=== PATIENT | male | born 1955 | race Caucasian/White ===

== ENCOUNTER 2017-12-20 09:18 | Outpatient (CLI) | payer BC | END 2017-12-20 23:59 | disposition home or self-care (01) | LOC: RAD 09:18 | PROVIDERS: ATTEND Family Medicine | DX: M47.892 Other spondylosis, cervical region (principal); M48.02 Spinal stenosis, cervical region | CPT/HCPCS: 72141 ==

== ENCOUNTER 2018-04-25 11:59 | Outpatient (CLI) | payer OTHER ==
[2018-04-25 12:40] LABS: BASOPHILS % (AUTO) 0.5 % (0-1); EOSINOPHILS # (AUTO) 0.4 X10'3 (0-0.9); EOSINOPHILS % (AUTO) 6.3 % (0-6); HEMATOCRIT 44.2 % (42.0-52.0); LYMPHOCYTES # (AUTO) 1.5 X10'3 (1.1-4.8); LYMPHOCYTES % (AUTO) 24.5 % (21-51); MEAN CORPUSCULAR HEMOGLOBIN 30.8 PG (27.0-31.0); MEAN CORPUSCULAR HGB CONC 33.9 % (33.0-36.5); MEAN CORPUSCULAR VOLUME 90.9 FL (78-98); MEAN PLATELET VOLUME 8.1 FL (7.4-10.4); MONOCYTES # (AUTO) 0.5 X10'3 (0-0.9); MONOCYTES % (AUTO) 7.9 % (2-12); NEUTROPHILS # (AUTO) 3.8 X10'3 (1.8-7.7); NEUTROPHILS % (AUTO) 60.8 % (42-75); PLATELET COUNT 183 X10'3 (140-440); RED BLOOD COUNT 4.86 X10'6 (4.70-6.10); RED CELL DISTRIBUTION WIDTH 13.4 % (11.5-14.5); WHITE BLOOD COUNT 6.3 X10'3 (4.5-11.0)
[2018-04-25 12:59] LABS: ALANINE AMINOTRANSFERASE 27 U/L (12-78); ALBUMIN 3.5 G/DL (3.4-5.0); ALKALINE PHOSPHATASE 70 IU/L (46-116); ANION GAP 10 (8-16); ASPARTATE AMINO TRANSFERASE 17 U/L (10-37); BILIRUBIN,TOTAL 0.8 MG/DL (0.1-1.0); BLOOD UREA NITROGEN 12 MG/DL (7-18); BUN/CREATININE RATIO 11.8 (5.4-32.0); CALCIUM 8.6 MG/DL (8.5-10.1); CHLORIDE 104 MMOL/L (99-107); CREATININE 1.02 MG/DL (0.60-1.10); GLUCOSE 96 MG/DL (70-104); POTASSIUM 3.8 MMOL/L (3.5-5.1); SODIUM 142 MMOL/L (135-145); TOTAL CARBON DIOXIDE 28.2 MMOL/L (24-32); TOTAL PROTEIN 7.1 G/DL (6.4-8.2); eGFR 74 ML/MIN
== END 2018-04-25 23:59 | disposition home or self-care (01) ==
LOC: LAB 11:59
PROVIDERS: ATTEND Family Medicine
DX: R60.9 Edema, unspecified (principal)
CPT/HCPCS: 36415; 80053; 83880; 85025

== ENCOUNTER 2018-09-27 08:16 | Outpatient (CLI) | payer OTHER ==
[2018-09-27 09:54] LABS: BASOPHILS % (AUTO) 0.7 % (0-1); EOSINOPHILS # (AUTO) 0.3 X10'3 (0-0.9); EOSINOPHILS % (AUTO) 5.8 % (0-6); HEMATOCRIT 46.7 % (42.0-52.0); HEMOGLOBIN 15.5 g/dl (14.0-17.9); LYMPHOCYTES # (AUTO) 1.4 X10'3 (1.1-4.8); LYMPHOCYTES % (AUTO) 30.4 % (21-51); MEAN CORPUSCULAR HEMOGLOBIN 30.7 PG (27.0-31.0); MEAN CORPUSCULAR HGB CONC 33.2 g/dL (33.0-36.5); MEAN CORPUSCULAR VOLUME 92.4 FL (78-98); MEAN PLATELET VOLUME 8.8 FL (7.4-10.4); MONOCYTES # (AUTO) 0.5 X10'3 (0-0.9); NEUTROPHILS # (AUTO) 2.4 X10'3 (1.8-7.7); NEUTROPHILS % (AUTO) 52.1 % (42-75); PLATELET COUNT 163 X10'3 (140-440); RED BLOOD COUNT 5.05 X10'6 (4.70-6.10); RED CELL DISTRIBUTION WIDTH 13.6 % (11.5-14.5); WHITE BLOOD COUNT 4.6 X10'3 (4.5-11.0)
[2018-09-27 10:13] LABS: CLARITY,URINE CLEAR (Clear); COLOR,URINE YELLOW (Yellow); GLUCOSE, URINE NEGATIVE (Neg); KETONES,URINE 15 mg/dl (Neg); LEUKOCYTE ESTERASE ,URINE NEGATIVE (Neg); NITRITES, URINE NEGATIVE (Neg); OCCULT BLOOD,URINE NEGATIVE (Neg); PROTEIN,URINE TRACE mg/dl (Neg)
[2018-09-27 10:25] LABS: ALANINE AMINOTRANSFERASE 39 U/L (12-78); ALBUMIN 3.7 G/DL (3.4-5.0); ALBUMIN/GLOBULIN RATIO 0.9 (1.1-1.5); ALKALINE PHOSPHATASE 52 IU/L (46-116); ANION GAP 9 (8-16); ASPARTATE AMINO TRANSFERASE 26 U/L (10-37); BILIRUBIN,TOTAL 0.8 MG/DL (0.1-1.0); BLOOD UREA NITROGEN 17 MG/DL (7-18); CALCIUM 9.2 MG/DL (8.5-10.1); CHLORIDE 102 MMOL/L (99-107); CHOL/HDL RATIO 1.4 (0.00-4.99); CHOLESTEROL 157 MG/DL (0-200); CREATININE 1.06 MG/DL (0.60-1.10); GLUCOSE 92 MG/DL (70-104); HDL CHOLESTEROL 111 MG/DL (35-60); LDL CHOLESTEROL 39 MG/DL (50-100); POTASSIUM 3.8 MMOL/L (3.5-5.1); SODIUM 142 MMOL/L (135-145); TOTAL CARBON DIOXIDE 30.7 MMOL/L (24-32); TOTAL PROTEIN 7.6 G/DL (6.4-8.2); TRIGLYCERIDES 41 MG/DL (20-135); eGFR 71 ML/MIN
[2018-09-27 11:00] LABS: UA COLLECTION TYPE CLN CATCH MIDSTREAM
[2018-09-27 11:07] LABS: BACTERIA,URINE NONE SEEN /HPF (Neg); RBC,URINE NONE SEEN /HPF (0-2); WBC,URINE NONE SEEN /HPF (0-4)
[2018-09-27 11:08] LABS: SQUAMOUS EPITHELIAL CELL,UR NONE SEEN /LPF (FEW)
== END 2018-09-27 23:59 | disposition home or self-care (01) ==
LOC: LAB 08:16
PROVIDERS: ATTEND Family Medicine
DX: Z76.89 Persons encountering health services in other specified circumstances (principal)
CPT/HCPCS: 36415; 80053; 80061; 81001; 84439; 84443; 85025

== ENCOUNTER 2020-02-06 15:04 | Emergency (ER) | payer BC, OTHER ==
[~2020-02-06] VITALS: Ht 172.7 cm; Wt 81.8 kg
[2020-02-06 16:04] LABS: BASOPHILS % (AUTO) 0.7 % (0-1); EOSINOPHILS # (AUTO) 0.3 X10'3 (0-0.9); EOSINOPHILS % (AUTO) 5.5 % (0-6); HEMATOCRIT 43.7 % (42.0-52.0); HEMOGLOBIN 14.9 g/dl (14.0-17.9); LYMPHOCYTES # (AUTO) 1.3 X10'3 (1.1-4.8); LYMPHOCYTES % (AUTO) 22.6 % (21-51); MEAN CORPUSCULAR HEMOGLOBIN 31.5 PG (27.0-31.0); MEAN CORPUSCULAR HGB CONC 34.2 g/dL (33.0-36.5); MEAN CORPUSCULAR VOLUME 92.1 FL (78-98); MEAN PLATELET VOLUME 8.3 FL (7.4-10.4); MONOCYTES # (AUTO) 0.5 X10'3 (0-0.9); MONOCYTES % (AUTO) 7.8 % (2-12); NEUTROPHILS # (AUTO) 3.8 X10'3 (1.8-7.7); NEUTROPHILS % (AUTO) 63.4 % (42-75); PLATELET COUNT 154 X10'3 (140-440); RED BLOOD COUNT 4.74 X10'6 (4.70-6.10); RED CELL DISTRIBUTION WIDTH 13.7 % (11.5-14.5)
[2020-02-06 16:19] LABS: ALANINE AMINOTRANSFERASE 34 U/L (12-78); ALBUMIN 3.5 G/DL (3.4-5.0); ALBUMIN/GLOBULIN RATIO 0.9 (1.1-1.5); ALKALINE PHOSPHATASE 59 IU/L (46-116); ANION GAP 7 (8-16); ASPARTATE AMINO TRANSFERASE 22 U/L (10-37); BILIRUBIN,TOTAL 0.6 MG/DL (0.1-1.0); BLOOD UREA NITROGEN 13 MG/DL (7-18); BUN/CREATININE RATIO 11.5 (5.4-32.0); CALCIUM 8.6 MG/DL (8.5-10.1); CHLORIDE 105 MMOL/L (99-107); CREATININE 1.13 MG/DL (0.60-1.10); GLUCOSE 108 MG/DL (70-104); POTASSIUM 3.7 MMOL/L (3.5-5.1); SODIUM 140 MMOL/L (135-145); TOTAL CARBON DIOXIDE 27.8 MMOL/L (24-32); TOTAL PROTEIN 7.3 G/DL (6.4-8.2); eGFR 65 ML/MIN
[2020-02-06] MEDS ORDERED: ondansetron/PF 4mg/2ml inj IV ONE (17:25)
[2020-02-06] MEDS ORDERED: morphine 4 MG/ML inj SYRINge IV ONE ×2 (17:25→18:25)
[2020-02-06] MEDS ORDERED: iohexol 350MG/ML 100ml bottle IV ONE (17:33)
--- NOTE | 2020-02-06 18:49 | NUR ---
pt does not want IV morphine at this time. he wants to wait for the CT results first
[2020-02-06] MEDS ORDERED: IBUP-1985 PO (19:47)
[2020-02-06] MEDS ORDERED: OXYC-145 PO (19:47)
[2020-02-06 20:04] VITALS: BP 150/96
== END 2020-02-06 20:07 | disposition home or self-care (01) ==
LOC: ER 15:05
DX: S22.20XA Unspecified fracture of sternum, initial encounter for closed fracture (principal); Z79.899 Other long term (current) drug therapy; W18.39XA Other fall on same level, initial encounter; Y93.89 Activity, other specified; Y92.89 Other specified places as the place of occurrence of the external cause; Y99.8 Other external cause status
CPT/HCPCS: 36415; 71275; 74175; 80053; 83880; 84484; 85025; 85610; 86885; 86900; 86901; 93005; 93306; 96374; 96375; 99285; J2270; J2405; Q9967

== ENCOUNTER 2021-01-06 19:40 | Emergency (ER) | payer BC ==
[~2021-01-06] VITALS: Ht 172.7 cm; Wt 75.1 kg
[~2021-01-06 19:40] MED LIST: IBUP-1985 PO; OXYC-145 PO
[2021-01-07] MEDS ORDERED: normal saline 1000ML IV soln IVB ONE (00:40)
[2021-01-07] MEDS ORDERED: nitroGLYCERIN 1gm ointment UD TP ONE (00:40)
[2021-01-07 01:12] LABS: BASOPHILS % (AUTO) 0.4 % (0-1); EOSINOPHILS # (AUTO) 0.2 X10'3 (0-0.9); EOSINOPHILS % (AUTO) 4.1 % (0-6); HEMATOCRIT 46.3 % (42.0-52.0); HEMOGLOBIN 15.7 g/dl (14.0-17.9); LYMPHOCYTES # (AUTO) 1.4 X10'3 (1.1-4.8); LYMPHOCYTES % (AUTO) 25.8 % (21-51); MEAN CORPUSCULAR HEMOGLOBIN 30.9 PG (27.0-31.0); MEAN CORPUSCULAR VOLUME 91.1 FL (78-98); MEAN PLATELET VOLUME 8.3 FL (7.4-10.4); MONOCYTES # (AUTO) 0.5 X10'3 (0-0.9); MONOCYTES % (AUTO) 8.6 % (2-12); NEUTROPHILS # (AUTO) 3.4 X10'3 (1.8-7.7); NEUTROPHILS % (AUTO) 61.1 % (42-75); PLATELET COUNT 164 X10'3 (140-440); RED BLOOD COUNT 5.09 X10'6 (4.70-6.10); RED CELL DISTRIBUTION WIDTH 13.8 % (11.5-14.5); WHITE BLOOD COUNT 5.5 X10'3 (4.5-11.0)
[2021-01-07 01:27] LABS: ALANINE AMINOTRANSFERASE 53 U/L (12-78); ALKALINE PHOSPHATASE 66 IU/L (46-116); ANION GAP 14 (8-16); ASPARTATE AMINO TRANSFERASE 33 U/L (10-37); BILIRUBIN,TOTAL 1.4 MG/DL (0.1-1.0); BLOOD UREA NITROGEN 19 MG/DL (7-18); BUN/CREATININE RATIO 19.4 (5.4-32.0); CALCIUM 9.2 MG/DL (8.5-10.1); CHLORIDE 110 MMOL/L (99-107); CREATININE 0.98 MG/DL (0.60-1.10); GLUCOSE 95 MG/DL (70-104); LIPASE 96 U/L (73-393); POTASSIUM 3.9 MMOL/L (3.5-5.1); SODIUM 147 MMOL/L (135-145); TOTAL CARBON DIOXIDE 22.8 MMOL/L (24-32); TOTAL PROTEIN 8.1 G/DL (6.4-8.2); eGFR 77 ML/MIN
[2021-01-07] MEDS ORDERED: morphine 4 MG/ML inj SYRINge IV ONE ×2 (06:45→13:30)
[2021-01-07] MEDS ORDERED: normal saline 1000ml 1,000 ML IV ONE (13:30)
[2021-01-07] MEDS ORDERED: fentaNYL/PF 50MCG/1 ML 2ML syringe ONE (14:39)
[2021-01-07] MEDS ORDERED: MIDAZolam 1 MG/ML 5ML VIAL ONE (14:39)
[2021-01-07] MEDS ORDERED: LIDOcaine Viscous 15ml cup ONE (14:39)
[2021-01-07 15:26] VITALS: BP 149/78
[2021-01-07 17:19] VITALS: BP 118/77
[2021-01-07 17:29] VITALS: BP 106/68
[2021-01-07 17:39] VITALS: BP 132/72
[2021-01-07] MEDS ORDERED: LISI1TAB51 PO (17:47)
[2021-01-07] MEDS ORDERED: AMLO10TA13 PO (17:47)
[2021-01-07 17:49] VITALS: BP 135/80
[2021-01-07] MEDS ORDERED: PANT-47 PO (18:30)
[2021-01-07 18:42] VITALS: BP 134/76
== END 2021-01-07 18:43 | disposition home or self-care (01) ==
LOC: ER 19:41
DX: K22.2 Esophageal obstruction (principal); Z79.899 Other long term (current) drug therapy
CPT/HCPCS: 36415; 43239; 71045; 80053; 83690; 85025; 93005; 96361; 96374; 96376; 99152; 99285; J2250; J2270; J3010; J7030; J7040; A4620

== ENCOUNTER 2021-04-02 08:30 | Day surgery (SDC) | payer BC, MEDICARE ==
[~2021-04-02] VITALS: Ht 172.7 cm; Wt 79.5 kg
[~2021-04-02 08:30] MED LIST changes: +AMLO10TA13 PO; -IBUP-1985 PO; +LISI1TAB51 PO; -OXYC-145 PO; +PANT-47 PO
[2021-04-02 08:45] VITALS: BP 149/92
[2021-04-02] MEDS ORDERED: PANT40TA54 PO (08:48)
[2021-04-02] MEDS ORDERED: LIDOcaine Viscous 15ml cup ONE (08:59)
[2021-04-02] MEDS ORDERED: fentaNYL/PF 50MCG/1 ML 2ML syringe ONE (08:59)
[2021-04-02] MEDS ORDERED: MIDAZolam 1 MG/ML 5ML VIAL ONE (08:59)
[2021-04-02 10:40] VITALS: BP 131/74
[2021-04-02 10:50] VITALS: BP 123/79
[2021-04-02 11:00] VITALS: BP 129/75
[2021-04-02 11:10] VITALS: BP 123/79
== END 2021-04-02 11:35 | disposition home or self-care (01) ==
LOC: GI LAB 08:30
PROVIDERS: ATTEND Internal Medicine Gastroenterology
DX: Z12.11 Encounter for screening for malignant neoplasm of colon (principal); R13.10 Dysphagia, unspecified; K63.89 Other specified diseases of intestine; K56.2 Volvulus; K57.30 Diverticulosis of large intestine without perforation or abscess without bleeding; K64.8 Other hemorrhoids; K22.2 Esophageal obstruction; K20.80 Other esophagitis without bleeding; K22.8 Other specified diseases of esophagus; K44.9 Diaphragmatic hernia without obstruction or gangrene; I10 Essential (primary) hypertension; Z87.11 Personal history of peptic ulcer disease; Z79.899 Other long term (current) drug therapy
CPT/HCPCS: 43239; 45378; 99152; 99153; J2250; J3010; J7040; Z7512; 43249; A4620; C1726

== ENCOUNTER 2021-06-27 03:30 | Emergency (ER) | payer BC, MEDICARE ==
[~2021-06-27] VITALS: Ht 175.3 cm; Wt 84.1 kg
[~2021-06-27 03:30] MED LIST changes: -PANT-47 PO; +PANT40TA54 PO
[2021-06-27] MEDS ORDERED: morphine 4 MG/ML inj SYRINge IV ONE ×2 (03:40→11:25)
[2021-06-27] MEDS ORDERED: ondansetron/PF 4mg/2ml inj IV ONE ×2 (03:40→11:25)
[2021-06-27] MEDS ORDERED: LORazepam 2 mg/ml vial IV ONE ×2 (03:45→06:10)
[2021-06-27] MEDS ORDERED: nitroGLYCERIN 1gm ointment UD TP ONE (03:45)
[2021-06-27] MEDS ORDERED: normal saline 1000ml 1,000 ML IV ONE ×2 (03:45→09:10)
[2021-06-27] MEDS ORDERED: orphenadrine citrate 60mg/2ml inj. IM ONE (03:45)
[2021-06-27 03:51] LABS: BASOPHILS # (AUTO) 0.1 X10'3 (0-0.2); BASOPHILS % (AUTO) 1.3 % (0-1); EOSINOPHILS # (AUTO) 0.4 X10'3 (0-0.9); EOSINOPHILS % (AUTO) 4.8 % (0-6); HEMATOCRIT 41.1 % (42.0-52.0); HEMOGLOBIN 14.2 g/dl (14.0-17.9); LYMPHOCYTES # (AUTO) 2.4 X10'3 (1.1-4.8); LYMPHOCYTES % (AUTO) 32.5 % (21-51); MEAN CORPUSCULAR HEMOGLOBIN 31.4 PG (27.0-31.0); MEAN CORPUSCULAR HGB CONC 34.5 g/dL (33.0-36.5); MEAN PLATELET VOLUME 7.9 FL (7.4-10.4); MONOCYTES # (AUTO) 0.4 X10'3 (0-0.9); MONOCYTES % (AUTO) 6.1 % (2-12); NEUTROPHILS % (AUTO) 55.3 % (42-75); PLATELET COUNT 178 X10'3 (140-440); RED BLOOD COUNT 4.52 X10'6 (4.70-6.10); RED CELL DISTRIBUTION WIDTH 13.6 % (11.5-14.5); WHITE BLOOD COUNT 7.3 X10'3 (4.5-11.0)
[2021-06-27 04:03] LABS: ALANINE AMINOTRANSFERASE 35 U/L (12-78); ALBUMIN 3.8 G/DL (3.4-5.0); ALKALINE PHOSPHATASE 61 IU/L (46-116); ANION GAP 16 (8-16); ASPARTATE AMINO TRANSFERASE 25 U/L (10-37); BILIRUBIN,TOTAL 1.6 MG/DL (0.1-1.0); BLOOD UREA NITROGEN 19 MG/DL (7-18); CALCIUM 9.2 MG/DL (8.5-10.1); CHLORIDE 106 MMOL/L (99-107); CREATININE 1.12 MG/DL (0.60-1.10); GLUCOSE 94 MG/DL (70-104); POTASSIUM 3.6 MMOL/L (3.5-5.1); SODIUM 147 MMOL/L (135-145); TOTAL CARBON DIOXIDE 24.8 MMOL/L (24-32); TOTAL PROTEIN 7.5 G/DL (6.4-8.2); eGFR 66 ML/MIN
[2021-06-27] MEDS ORDERED: HYDROmorphone inj. 0.5 MG/0.5 ML DISP.SYRIN IV ONE (04:10)
[2021-06-27] MEDS ORDERED: famotidine/PF 10 mg/ml inj IV ONE (06:10)
[2021-06-27] MEDS ORDERED: glucagon, human recombinant 1mg kit IV ONE (06:10)
[2021-06-27] MEDS ORDERED: pantoprazole 40 MG vial IV ONE (06:10)
[2021-06-27] MEDS ORDERED: pantoprazole IV 40 MG in dextrose 5%-water 100 ML IV ONE (06:15)
[2021-06-27 08:56] LABS: CLARITY,URINE CLEAR (Clear); COLOR,URINE YELLOW (Yellow); GLUCOSE, URINE NEGATIVE (Neg); KETONES,URINE >=80 mg/dl (Neg); LEUKOCYTE ESTERASE ,URINE NEGATIVE (Neg); NITRITES, URINE NEGATIVE (Neg); OCCULT BLOOD,URINE NEGATIVE (Neg); PH,URINE 5.5 (4.8-8.0); PROTEIN,URINE NEGATIVE (Neg); UROBILINOGEN,URINE 0.2 E.U/dL (0.2-1.0)
[2021-06-27 09:00] LABS: UA COLLECTION TYPE NON-SPECIFIED
--- NOTE | 2021-06-27 09:01 | NUR ---
Patient's given update via telephone. Geraldine: [phone]
[2021-06-27] MEDS ORDERED: MIDAZolam 1 MG/ML 5ML VIAL ONE (11:22)
[2021-06-27] MEDS ORDERED: fentaNYL/PF 50MCG/1 ML 2ML syringe ONE (11:22)
[2021-06-27] MEDS ORDERED: LIDOcaine Viscous 15ml cup ONE (11:22)
[2021-06-27 11:32] VITALS: BP 152/89
[2021-06-27] MEDS ORDERED: pantoprazole 40MG/NS 100ML BAG 100 ML IV SCH (12:00)
[2021-06-27 12:24] VITALS: BP 90/61
[2021-06-27 12:34] VITALS: BP 98/64
[2021-06-27 12:44] VITALS: BP 114/64
[2021-06-27 12:54] VITALS: BP 122/60
[2021-06-27 13:19] VITALS: BP 126/79
[2021-06-27] MEDS ORDERED: OMEP20CA15 PO (13:19)
== END 2021-06-27 13:41 | disposition home or self-care (01) ==
LOC: ER 03:31
DX: K22.4 Dyskinesia of esophagus (principal); K21.9 Gastro-esophageal reflux disease without esophagitis; N18.9 Chronic kidney disease, unspecified; Z20.822 Contact with and (suspected) exposure to COVID-19
CPT/HCPCS: 36415; 43239; 71045; 80053; 81003; 84484; 85025; 96361; 96372; 96374; 96375; 96376; 99285; C9113; J1170; J1610; J2060; J2250; J2270; J2360; J2405; J3010; J3490; J7030; J7060; U0003; U0005; Z7512; 99152; A4620

== ENCOUNTER 2021-08-03 09:19 | Day surgery (SDC) | payer BC, MEDICARE ==
[~2021-08-03] VITALS: Ht 172.7 cm; Wt 77.3 kg
[~2021-08-03 09:19] MED LIST changes: +OMEP20CA15 PO
[2021-08-03 09:30] VITALS: BP 170/114
[2021-08-03] MEDS ORDERED: ESOM40CA49 PO (09:43)
[2021-08-03] MEDS ORDERED: fentaNYL/PF 50MCG/1 ML 2ML syringe ONE (10:22)
[2021-08-03] MEDS ORDERED: MIDAZolam 1 MG/ML 5ML VIAL ONE (10:22)
[2021-08-03] MEDS ORDERED: LIDOcaine Viscous 15ml cup ONE (10:22)
[2021-08-03 11:46] VITALS: BP 146/90
[2021-08-03 11:56] VITALS: BP 137/78
[2021-08-03 12:06] VITALS: BP 135/82
[2021-08-03 12:16] VITALS: BP 136/83
== END 2021-08-03 13:00 | disposition home or self-care (01) ==
LOC: GI LAB 09:19
PROVIDERS: ATTEND Internal Medicine Gastroenterology
DX: R13.10 Dysphagia, unspecified (principal); R12 Heartburn; K44.9 Diaphragmatic hernia without obstruction or gangrene; K22.2 Esophageal obstruction; I10 Essential (primary) hypertension; Z79.899 Other long term (current) drug therapy
CPT/HCPCS: 43235; 99152; J2250; J3010; J7040; Z7512; A4620

== ENCOUNTER 2021-09-20 17:09 | Emergency (ER) | payer BC, MEDICARE ==
[~2021-09-20] VITALS: Ht 172.7 cm; Wt 79.5 kg
[~2021-09-20 17:09] MED LIST changes: +ESOM40CA49 PO; -OMEP20CA15 PO; -PANT40TA54 PO
[2021-09-20 20:38] VITALS: BP 154/78
== END 2021-09-20 20:42 | disposition home or self-care (01) ==
LOC: ER 17:09
DX: K59.00 Constipation, unspecified (principal); K21.9 Gastro-esophageal reflux disease without esophagitis; Z79.899 Other long term (current) drug therapy
CPT/HCPCS: 74018; 99283

== ENCOUNTER 2022-02-19 11:26 | Outpatient (CLI) | payer BC, MEDICARE ==
[2022-02-19 12:09] LABS: BASOPHILS % (AUTO) 0.7 % (0-1); EOSINOPHILS # (AUTO) 0.2 X10'3 (0-0.9); EOSINOPHILS % (AUTO) 4.8 % (0-6); HEMOGLOBIN 15.1 g/dl (14.0-17.9); LYMPHOCYTES # (AUTO) 1.3 X10'3 (1.1-4.8); LYMPHOCYTES % (AUTO) 28.2 % (21-51); MEAN CORPUSCULAR HEMOGLOBIN 30.7 PG (27.0-31.0); MEAN CORPUSCULAR HGB CONC 33.6 g/dL (33.0-36.5); MEAN CORPUSCULAR VOLUME 91.2 FL (78-98); MEAN PLATELET VOLUME 8.2 FL (7.4-10.4); MONOCYTES # (AUTO) 0.4 X10'3 (0-0.9); MONOCYTES % (AUTO) 9.2 % (2-12); NEUTROPHILS # (AUTO) 2.6 X10'3 (1.8-7.7); NEUTROPHILS % (AUTO) 57.1 % (42-75); PLATELET COUNT 142 X10'3 (140-440); RED BLOOD COUNT 4.94 X10'6 (4.70-6.10); RED CELL DISTRIBUTION WIDTH 14.3 % (11.5-14.5); WHITE BLOOD COUNT 4.5 X10'3 (4.5-11.0)
[2022-02-19 12:20] LABS: ALANINE AMINOTRANSFERASE 34 U/L (12-78); ALBUMIN 3.7 G/DL (3.4-5.0); ALKALINE PHOSPHATASE 53 IU/L (46-116); ANION GAP 10 (8-16); ASPARTATE AMINO TRANSFERASE 20 U/L (10-37); BLOOD UREA NITROGEN 16 MG/DL (7-18); BUN/CREATININE RATIO 15.5 (5.4-32.0); CHLORIDE 105 MMOL/L (99-107); CREATININE 1.03 MG/DL (0.60-1.10); GLUCOSE 99 MG/DL (70-104); POTASSIUM 4.1 MMOL/L (3.5-5.1); SODIUM 143 MMOL/L (135-145); TOTAL CARBON DIOXIDE 28.3 MMOL/L (24-32); TOTAL PROTEIN 7.5 G/DL (6.4-8.2); eGFR 72 ML/MIN
[2022-02-19 12:21] LABS: C-REACTIVE PROTEIN 0.14 MG/DL (0.0-0.5); CHOL/HDL RATIO 1.6 (0.00-4.99); CHOLESTEROL 162 MG/DL (0-200); HDL CHOLESTEROL 99 MG/DL (35-60); LDL CHOLESTEROL 46 MG/DL (50-100); TRIGLYCERIDES 132 MG/DL (20-135)
[2022-02-20 09:29] LABS: MICROALB/CRT, RATIO 47 mg/g creat (0-29)
== END 2022-02-19 23:59 | disposition home or self-care (01) ==
LOC: LAB 11:26
PROVIDERS: ATTEND Family Medicine
DX: Z13.220 Encounter for screening for lipoid disorders (principal); M25.50 Pain in unspecified joint; R29.818 Other symptoms and signs involving the nervous system; I10 Essential (primary) hypertension; R53.83 Other fatigue
CPT/HCPCS: 36415; 80053; 80061; 82043; 82570; 84402; 84403; 85025; 85651; 86140